=== PATIENT | female | born 1945 | race Caucasian/White ===

== ENCOUNTER 2022-07-13 09:18 | Inpatient (IN) | payer MEDICARE, BC ==
[~2022-07-13 09:18] MED LIST: Lidocaine 1%/Sod Bicarbonate in NS 8.4% 1 ML Syringe IDERM PRN; Sodium Chloride 0.9% 10 ML Syringe FLUSH PRN
[2022-07-13] MEDS: Lactated Ringers 1,000 ML IV SCH ×2 (10:06→18:35)
[2022-07-13] MEDS ORDERED: Gabapentin 300 MG Cap PO SCH (10:15)
[2022-07-13] MEDS ORDERED: Acetaminophen 325 MG Tab PO SCH (10:15)
[2022-07-13] MEDS ORDERED: Dextrose 5% in Water 100 ML ONE (10:22)
[2022-07-13] MEDS ORDERED: Ropivacaine 0.5% 5 MG/ML 30 ML SDV ONE (10:46)
[2022-07-13] MEDS ORDERED: EPINEPHrine 1 MG/ML SDV ONE (10:46)
[2022-07-13] MEDS ORDERED: Dexmedetomidine 200 MCG/2 ML SDV ONE (10:48)
[2022-07-13] MEDS ORDERED: fentaNYL 100 MCG/2 ML SDV ONE (10:50)
[2022-07-13] MEDS ORDERED: Midazolam 1 MG/ML 2 ML SDV ONE (10:50)
[2022-07-13] MEDS ORDERED: Lidocaine 1% 4 ML ONE (10:55)
[2022-07-13] MEDS ORDERED: Scopolamine 1.5 MG Transdermal Patch TOP ONE (11:00)
[2022-07-13] MEDS ORDERED: Propofol 200 MG/20 ML SDV ONE ×10 (11:30→14:21)
[2022-07-13] MEDS ORDERED: Phenylephrine HCl In 0.9% NaCl 1 MG/10 ML Vial ONE (11:40)
[2022-07-13] MEDS ORDERED: Lidocaine 1% 5 ML VIAL ONE (11:40)
[2022-07-13] MEDS ORDERED: ceFAZolin 2 GM Vial ONE (11:43)
[2022-07-13] MEDS: Bupivacaine 0.5% 30 ML SDV ONE ×2 (11:56→12:11)
[2022-07-13] MEDS ORDERED: Dexamethasone 4 MG/ML 5 ML MDV ONE (11:56)
[2022-07-13] MEDS ORDERED: Ondansetron 4 MG/2 ML SDV ONE (11:56)
[2022-07-13] MEDS: Lidocaine 1% with EPINEPHrine 1:100,000 10 ML MDV ONE ×2 (11:56→12:11)
[2022-07-13] MEDS: Methylene Blue 50 MG/10 ML Ampule ONE ×2 (11:59→12:12)
[2022-07-13] MEDS ORDERED: ePHEDrine 50 MG/ML SDV ONE (12:03)
[2022-07-13] MEDS ORDERED: Lactated Ringers 1,000 ML ONE (12:33)
[2022-07-13] MEDS ORDERED: Ketamine 500 mg/10 ML MDV ONE (12:40)
[2022-07-13] MEDS ORDERED: HYDROmorphone 0.5 MG/0.5 ML Syringe IVPUSH PRN (13:13)
[2022-07-13] MEDS ORDERED: fentaNYL 100 MCG/2 ML SDV IVPUSH PRN (13:13)
[2022-07-13] MEDS ORDERED: Ondansetron 4 MG/2 ML SDV IVPUSH PRN (13:13)
[2022-07-13] MEDS ORDERED: HYDROmorphone 0.5 MG/0.5 ML Syringe ONE (13:53)
[2022-07-13] MEDS ORDERED: Cyclobenzaprine 10 MG Tab PO PRN (15:21)
[2022-07-13] MEDS ORDERED: FLUOCINONIDE TOP PRN (15:21)
[2022-07-13] MEDS ORDERED: Nitroglycerin 0.4 MG Tab.SL SL PRN (15:21)
[2022-07-13] MEDS ORDERED: traMADol 50 MG Tab PO PRN (15:22)
[2022-07-13] MEDS ORDERED: Ondansetron 4 MG Tab.DIS PO PRN (15:23)
[2022-07-13] MEDS: Acetaminophen 325 MG Tab PO SCH ×2 (18:36→21:16)
[2022-07-13] MEDS: Sodium Chloride 0.9% 10 ML Syringe FLUSH SCH ×2 (20:12→21:16)
[2022-07-14] MEDS: Acetaminophen 325 MG Tab PO SCH ×3 (01:45→09:00)
[2022-07-14] MEDS ORDERED: Pantoprazole 40 MG Tab.CR PO SCH (07:00)
[2022-07-14] MEDS ORDERED: Heparin Sodium 5,000 Units/ML Vial SUBCUT SCH (08:00)
[2022-07-14] MEDS ORDERED: Metoprolol Succinate 25 MG Tab.ER PO SCH (09:00)
[2022-07-14] MEDS ORDERED: Losartan 25 MG Tab PO SCH (09:00)
== END 2022-07-14 12:40 | disposition home or self-care (01) | DRG 581 ==
LOC: JD.SDS 09:18 → JD.MS 16:08
PROVIDERS: ADMIT Surgery; ATTEND Surgery
PROC: 0HBT0ZZ Excision of Right Breast, Open Approach (ICD-10-PCS; principal; 2022-07-13)
PROC: 07B50ZX Excision of Right Axillary Lymphatic, Open Approach, Diagnostic (ICD-10-PCS; 2022-07-13)
DX: D05.11 Intraductal carcinoma in situ of right breast (principal); E78.5 Hyperlipidemia, unspecified; I10 Essential (primary) hypertension; Z90.49 Acquired absence of other specified parts of digestive tract; Z86.010 Personal history of colon polyps; Z90.710 Acquired absence of both cervix and uterus; Z90.89 Acquired absence of other organs; Z98.890 Other specified postprocedural states
CPT/HCPCS: 01610; 38792; 64450; 76942; 97161-GP; 97530-GP; 99100; A9270-GY; A9541; J0171; J0690; J1100; J1170; J1644; J2250; J2405; J2704; J2795; J3010; J3490; J7120